=== PATIENT | male | born 1985 | race Caucasian/White ===

== ENCOUNTER 2016-12-07 20:40 | Inpatient (IN) ==
[2016-12-07 21:09] LABS: URINE SOURCE CLEAN CATCH
[2016-12-07 21:14] LABS: BILIRUBIN URINE NEGATIVE (NEGATIVE); BLOOD URINE NEGATIVE (NEGATIVE); COLOR YELLOW; GLUCOSE URINE NEGATIVE (NEGATIVE); LEUKOCYTES URINE NEGATIVE (NEGATIVE); NITRITE URINE NEGATIVE (NEGATIVE); PH URINE 5.5; PROTEIN URINE 50 mg/dL (NEGATIVE); SP GRAVITY URINE 1.022; TURBIDITY URINE CLEAR (CLEAR); UROBILINOGEN URINE 2 mg/dL (NORMAL)
[2016-12-07 21:15] LABS: URINE MICRO REVIEW NEEDED? YES
[2016-12-07 21:15] LABS: BASO% 0.3 % (0.0-0.8); EOS# 0.01 X1000 (0.0-0.7); EOS% 0.1 % (0.0-10.0); HEMATOCRIT 34.9 % (42.0-52.0); HEMOGLOBIN 11.5 g/dL (14.0-18.0); IMM GRAN% 0.7 % (0.0-0.5); LYMPH# 0.98 X1000 (1.2-3.4); LYMPH% 6.7 % (20.5-51.1); MANUAL DIFF NEEDED? NO; MCH 24.7 PG (27-31); MCV 74.9 FL (81-99); MONO# 0.57 X1000 (0.11-0.59); MONO% 3.9 % (1.7-9.3); MPV 10.4 FL (7.4-10.4); NEUT% 88.3 % (42.2-75.2); PLT 452 X1000 (130-400); RBC 4.66 XMIL (4.7-6.1)
[2016-12-07 21:17] LABS: UR EPITHELIAL CELLS <10 /HPF (<10); URINE BACTERIA NEGATIVE /HPF; URINE RBC <10 /HPF (<10); URINE WBC <10 /HPF (<10)
[2016-12-07 21:24] LABS: URINE CASTS GRANULAR PRESENT; URINE CRYSTALS NONE SEEN
[2016-12-07 22:00] LABS: ALBUMIN 3.6 g/dL (3.5-5.0); CALCIUM 8.8 mg/dL (8.8-10.2); MAGNESIUM 2.4 mg/dL (1.5-2.7); POTASSIUM 5.2 mmol/L (3.5-5.1); TOTAL BILIRUBIN 1.37 mg/dL (0.20-1.00); TOTAL PROTEIN 7.3 g/dL (6.3-8.3)
[2016-12-07 22:24] LABS: UR AMPHETAMINES QUAL NONE DETECTED (NONE DETECT); UR BARBITUATES QUAL NONE DETECTED (NONE DETECT); UR BENZODIAZEPIN QUAL NONE DETECTED (NONE DETECT); UR CANNABINOIDS QUAL NONE DETECTED (NONE DETECT); UR COCAINE QUAL NONE DETECTED (NONE DETECT); UR METHADONE QUAL NONE DETECTED (NONE DETECT); UR OPIATES QUAL NONE DETECTED (NONE DETECT); UR OXYCODONE QUAL NONE DETECTED (NONE DETECT); UR PCP QUAL NONE DETECTED (NONE DETECT)
[2016-12-07] MEDS ORDERED: ASPIRIN PO STA (22:37)
[2016-12-07] MEDS ORDERED: LOPRESSOR IV ONE (22:38)
[2016-12-07 22:51] LABS: INR 1.26; PROTIME 13.4 Seconds (9.2-11.7); PTT 29.7 Seconds (22.0-36.0)
[2016-12-08] MEDS ORDERED: LEVAQUIN 500 MG/D5W 500 MG/100 ML IVPB IV ONE (02:05)
[2016-12-08] MEDS ORDERED: NS 1,000 ML IV SCH ×2 (02:55→07:09)
[2016-12-08] MEDS ORDERED: ZOFRAN ONE (03:01)
[2016-12-08] MEDS ORDERED: ZOFRAN IV ONE (03:14)
[2016-12-08] MEDS ORDERED: SODIUM CHLORIDE 0.9% INJ PRN (04:10)
[2016-12-08] MEDS ORDERED: PHENERGAN IV PRN (04:10)
[2016-12-08] MEDS ORDERED: COMPAZINE IV PRN (04:13)
--- NOTE | 2016-12-08 04:17 | HISTORY AND PHYSICAL ---
CHIEF COMPLAINT: Shortness of breath, cough, and chest pain. HISTORY OF PRESENTING ILLNESS: This is a 31-year-old male without any significant past medical history who presented to the emergency department with a 1-week history of having chest discomfort, shortness of breath, and a cough. He states that he initially had some fevers and chills, and then his symptoms became more of a cough and shortness of breath. He apparently went to the urgent care and received antibiotics. However, he did not improve and subsequently he had come to the emergency department. He was evaluated in the ER. He had imaging done which did show that he had a pneumonia. Due to his presenting symptoms, it was thought that he would need hospitalization for further management. At the time of my examination, he had denied any headache, hemoptysis, melena, or any weight changes but complained of nausea, chest discomfort, shortness of breath, and having fever. PAST MEDICAL HISTORY: None. PAST SURGICAL HISTORY: None. ALLERGIES: Penicillin, sulfa, and Bactrim. CURRENT MEDICATIONS: As listed in the MAR. SOCIAL HISTORY: He denies any history of smoking. Admits to social alcohol use. Denies any illicit drug use. FAMILY HISTORY: Positive for coronary disease in father. REVIEW OF SYSTEMS: Twelve point systems as listed in the HPI. Other systems negative. PHYSICAL EXAMINATION: GENERAL: Cooperative, friendly male. He is resting comfortably now. VITAL SIGNS: Temperature 98.5 degrees, pulse 148, respirations 14, blood pressure 133/44. HEENT: Atraumatic, normocephalic. Extraocular movements intact. PERRLA. NECK: No masses. CHEST: Bibasilar rales. CARDIOVASCULAR: Tachycardic. ABDOMEN: Soft. Positive bowel sounds. EXTREMITIES: No edema. NEUROLOGIC: He is awake, alert, oriented x3. : No bladder distention. SKIN: Warm. LABORATORIES AND STUDIES: WBCs 14.64, hemoglobin 11.5, hematocrit 34.9, platelets 452,000. Sodium 134, potassium 5.2, chloride 96, CO2 is 21, BUN is 28, creatinine is 1.6 , glucose is 134. Troponin 0.641. ASSESSMENT: A 31-year-old male who had presented to the emergency department with a 1-week history of having cough, shortness of breath, and chest pain. He was found to have, on imaging, pneumonia. He was also noted to have, on laboratories, elevated troponins. The patient will need hospitalization for further management. 1. Suspected pneumonia. 2. Elevated troponins associated with chest pain. 3. Acute kidney injury. PLAN: 1. We will admit patient to [facility]. 2. We will check blood cultures. Start patient on IV antibiotics. 3. We will trend troponins, check echocardiogram, and consult cardiology. 4. We will continue with IV fluid hydration and monitor renal function. 5. We will put patient on DVT prophylaxis with SCDs and heparin. 6. We will continue to follow and reassess. cc: Kalen Marie MD MTDD
[2016-12-08] MEDS ORDERED: TEFLARO 600 MG in NS 250 ML IV SCH (09:45)
[2016-12-08 11:50] VITALS: BP 106/31
--- NOTE | 2016-12-08 12:13 | CONSULTATION ---
DATE OF CONSULTATION: 12/08/2016 CHIEF COMPLAINT: Shortness of breath, tachycardia. HISTORY OF PRESENT ILLNESS: Mr. Maddox is a 31-year-old male, a patient of Dr. Lissett Saul, previously healthy, who presented to the emergency room department at about 10:00 p.m. last night with complaints of approximately 9 to 10 days of relatively sudden onset of malaise, shortness of breath, palpitations and diarrhea. This went on for a couple of days. He went to the urgent care where they gave him some symptomatic medicines, no antibiotics. He continued to feel poorly with alternation of shortness of breath and tachycardia. He went to Dr. Saul's office on 12/06/2016. They dejuan some blood work, and those results were pending. Last night he felt very poorly and decided to come to the emergency room. In the ER, a chest x-ray showed bilateral infiltrates suspicious for pneumonia. They did a CT scan of the chest with contrast that showed no pulmonary embolus and bilateral pulmonary infiltrates. The patient has been admitted to the Step Down Unit for evaluation. They have checked cardiac enzymes, and 3 of them are elevated at 0.641, 0.666 and 0.658 with normal CPKs. They are calling Cardiology in consultation because of the abnormal cardiac enzymes. An EKG was done at the time of presentation at 8:55 p.m. that shows sinus tachycardia with diffuse ST-T abnormality in multiple leads and LVH. PAST MEDICAL HISTORY: Really negative. He really has no previous illnesses to report. He has been pretty healthy. PAST SURGICAL HISTORY: Also negative. He has no previous operations. ALLERGIES: Reportedly to penicillin, sulfamethoxazole and trimethoprim. REVIEW OF SYSTEMS: He was born as a normal child. He has no previous major illnesses or surgeries. He is very active. SOCIAL HISTORY: He is single. He works at the [place] in [place]. He does not use any drugs or alcohol or smoking cigarettes. FAMILY HISTORY: Coronary artery disease in father, otherwise nothing contributory. PHYSICAL EXAMINATION: Pulse rate is 131, temperature 97.8, blood pressure 125/ 52, respirations 25. He is tachypneic. He has conversational dyspnea. He appears to be pale. He appears to be acutely ill. HEENT is unremarkable. Chest: Slightly diminished breath sounds. No definite rales are noted. Heart sounds are tachycardic, regular, loud murmur or diastolic regurgitation noted at the base of the heart. Abdomen is slightly tender in the right upper quadrant. Extremities showed symmetrical pulses; however, they appeared to be decreased in amplitude,somewhat feeble (radial,DP,PT). Neurologic: He moves all 4 extremities. He has no obvious deficits. DIAGNOSTIC DATA: Blood work shows sodium 134, potassium 5.2, BUN is 28, creatinine 1.6. White count is 14,000, hemoglobin 11.5. ADDENDUM: C-reactive protein was checked and was 102.33 mg/L (normal less than 5). Sedimentation rate is 40 mm/hr. Both inflammatory markers. His 2D echocardiogram was done today, and I have reviewed it. It shows significant enlargement of the left ventricular chamber with significant impairment of systolic function. Ejection fraction is 30% with abnormal aortic valve, with prolapsing tissue during diastole with wide open aortic regurgitation and limited opening of the mitral valve, suggesting severe degree of aortic regurgitation. IMPRESSION: 1. 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 2. Respiratory failure secondary to number 1. 3. Renal dysfunction, probably secondary to low cardiac output state, aggravated potentially by intravenous dye used for contrast CT. 4. Elevation of troponin level with abnormal EKG, global subendocardial ischemia from the acute systolic volume overload. RECOMMENDATIONS: The patient's state represents a high risk for mortality. He is in a low cardiac output state clinically with impaired LV function, diminished peripheral pulses. The patient is going to be transferred to [facility] for acute surgical evaluation, possibly acute replacement of the aortic valve. I discussed the case with Dr. Latrell Crow. I explained this to the patient and the family. They all understand and agree. cc: Dr. Latrell Crow, [facility] Cardiology Service Billy Coker MD [facility]
--- NOTE | 2016-12-08 13:14 | Diag Imaging Result Document ---
PROCEDURE NAME: CHEST-1 VIEW - 12/07/2016 PORTABLE CHEST: No comparison exam. FINDINGS: Heart size appears mildly enlarged. There are bilateral perihilar infiltrates. There are small left and possible small right pleural effusions. There is no pneumothorax seen. IMPRESSION: Findings which are suggestive of pulmonary edema/congestive heart failure.
--- NOTE | 2016-12-08 13:15 | Diag Imaging Result Document ---
PROCEDURE NAME: ANGIOGRAM/PULMONARY ARTERIES - 12/08/2016 CT ANGIOGRAM PULMONARY ARTERIES WITH CONTRAST: TECHNIQUE: Exam performed with intravenous contrast. A dose reduction protocol was used. Axial and coronal images are obtained. No comparison exam. FINDINGS: There are no filling defects identified in the pulmonary arteries. There is mild to moderate cardiomegaly. There are bilateral infiltrates which are primarily perihilar in distribution. On the left, the upper lobe infiltrate extends to the apex. There are small bilateral pleural effusions. There is no pneumothorax seen. IMPRESSION: 1. No evidence of pulmonary embolism. 2. Evidence of pulmonary edema/congestive heart failure. In the presence of the pulmonary edema, it is difficult to determine whether or not there is superimposed pneumonia. Preliminary results were provided by a [facility] physician at 1:57 a.m. on 12/08/2016.
--- NOTE | 2016-12-08 16:17 | ECHO REPORT ---
ORDER DATE: 12/08/2016 INTERPRETING PHYSICIAN: Dr. Coker REQUESTING PHYSICIAN: CLINICAL INDICATIONS: This is a 31-year-old male with shortness of breath, tachycardia. M-MODE MEASUREMENTS: Right ventricle: 3.5 cm. Left ventricle end diastole: 7.3 cm. Left ventricle end systole: 6.4 cm. Posterior wall: 1.7 cm. Interventricular septum: 1.7 cm. Left atrium: 4.5 cm. Aortic root: 3.7 cm. SUMMARY OF 2-DIMENSIONAL IMAGIN. Left ventricular chamber is markedly dilated. Global ejection fraction is decreased, estimated at 30% to 35%. 2. The aortic valve is markedly abnormal. I cannot define whether this is a bicuspid or tricuspid valve because the leaflets are completely disrupted. Color flow mapping shows a wide open, severe degree of aortic regurgitation. 3. The mitral valve is not opening appropriately and is suspicious for premature closure. 4. The pulse wave Doppler of mitral inflow shows fusion of the E and the A wave. 5. The excursion of the mitral valve is impeded by the wide open jet of aortic regurgitation. 6. A large vegetation is attached to the posterior aspect of the aortic valve. This vegetation or debris measures anywhere from 2.6 to 3 cm, and it prolapses in diastole. This, as I said, is attached to whatever it is, the posterior aspect of this aortic valve. 7. Pulmonic valve appears to be unremarkable. Color flow mapping indicates mild to moderate degree of regurgitation. 8. Tricuspid valve shows moderate degree of regurgitation. 9. The inferior vena cava is dilated. 10.Pulmonary systolic pressure is estimated at 67 mmHg. 11.There is no definite pericardial effusion. 12.The atria are not dilated. CONCLUSIONS: 1. Markedly dilated left ventricle with significant global impairment. Ejection fraction is 30% to 35%. 2. Severe degree of aortic regurgitation with disruption of the aortic valve, vegetation-like structure attached to the posterior leaflet measuring 2.5 x 3 cm. 3. There is a mild degree of mitral regurgitation, and the opening of mitral valve appears to be restricted. 4. There is moderate degree of pulmonary hypertension, estimated at 67 mmHg. Clinical correlation is recommended. This is consistent with a case of acute systolic dysfunction secondary to a wide open severe acute aortic regurgitation secondary to endocarditis. Clinical correlation is strongly recommended. I believe the patient is going to be admitted to the Cardiovascular Intensive Care Unit at [facility]. cc: MD Kalen Whitt MD Vernon Ross Hunter
[2016-12-09] MEDS ORDERED: LEVAQUIN 750 MG/D5W 750 MG/150 ML IVPB IV SCH (01:00)
--- NOTE | 2016-12-09 01:10 | DISCHARGE SUMMARY ---
ADMISSION DATE: 12/08/2016 DISCHARGE DATE: 12/08/2016 HOSPITAL COURSE: This is a 31-year-old male who presented to the emergency department complaining of sudden onset of generalized malaise, shortness of breath, palpitations, and diarrhea. He went to see his doctor, and they do not have any results from those studies, but considering that this patient continued to deteriorate, he decided to come to the emergency department. Initial workup in the ER showed pneumonia and for apparently a suspicion for a pulmonary embolus. They did a CT angiogram of the chest, which is not reported at the time of dictation. The patient also was ordered an echocardiogram, which basically was seen by Dr. Coker from Cardiology, which showed significant enlargement of the left ventricle chamber, with a significant impairment of the systolic function, with ejection fraction of 20%. Basically, showed [id number] aortic insufficiency. Also, Dr. Coker, considering these severe findings in the echocardiogram, he decided to transfer this patient to [facility] for acute surgical evaluation and possible acute replacement of the aortic valve. cc: Clifton Ayala MD
--- NOTE | 2016-12-09 07:34 | EKG Report ---
Test Performed on : 12/07/2016 8:55:00 PM Test Reason : HIGH HR Blood Pressure : / mmHG Vent. Rate : 143 BPM Atrial Rate : 143 BPM P-R Int : 112 ms QRS Dur : 098 ms QT Int : 322 ms P-R-T Axes : -17 044 198 degrees QTc Int : 496 ms Sinus tachycardia. Septal infarct , age undetermined Marked ST abnormality, possible inferior subendocardial injury Marked ST abnormality, possible anterolateral subendocardial injury Abnormal ECG No previous ECGs available Unconfirmed Result
--- NOTE | 2016-12-09 07:35 | EKG Report ---
Test Performed on : 12/07/2016 10:41:05 PM Test Reason : repeat-2hr Blood Pressure : / mmHG Vent. Rate : 145 BPM Atrial Rate : 145 BPM P-R Int : 118 ms QRS Dur : 086 ms QT Int : 320 ms P-R-T Axes : 000 -68 249 degrees QTc Int : 497 ms Sinus tachycardia. Left axis deviation Possible Anterior infarct (cited on or before 07-DEC-2016) Marked ST abnormality, possible lateral subendocardial injury Abnormal ECG When compared with ECG of 07-DEC-2016 20:55, (Unconfirmed) QRS axis shifted left Serial changes of evolving Anterior infarct present Unconfirmed Result
--- NOTE | 2016-12-25 10:28 | ED EKG INTERP ---
This chart was entered by Cecily Steele Scribe, acting as scribe for Clement Sanabria MD. EKG Interpretation - EKG Time of EKG reading by physician:: 20:55 EKG Read and Signed by:: Clement Sanabria EKG Interpretation (*Must complete 3 of following elements*): Abnormal Rate: 143 (septal infarct, age undeterminded; marked ST abnormality, possible inferior subendocardial injury; Marked ST abnormality, possible anterolateral subendocardial injury) Rhythm: sinus tachycardia - EKG # 2 Time of EKG reading by physician:: 22:41 EKG Read and Signed by:: Clement Sanabria EKG Interpretation (*Must complete 3 of following elements*): Abnormal Rate: 145 (left axis deviation; possible anterior infarct, age undetermined; marked st abnormality, possible lateral subendocardial injury) Rhythm: sinus tachycardia This chart was documented by the indicated scribe, (Cecily Steele Scribe) and accurately reflects the services I performed and decisions made by Daniele sexton Christophe I, MD, as attested by the provider's signature.
--- NOTE | 2016-12-25 10:28 | PROVIDER DOCUMENTATION ---
This chart was entered by Cecily Steele Scribe, acting as scribe for Clement Sanabria MD. HPI-Cardiac General - General Chief Complaint: General Adult Stated Complaint: "ABNORMAL, NAUSEA, SOB" Time Seen by Provider: 12/07/16 22:36 Source: patient Allergies/Adverse Reactions: Patient Allergies Allergy/AdvReac Type Severity Reaction Status Date / Time Penicillins Allergy Unknown Verified 12/07/16 23:01 sulfamethoxazole Allergy RASH Verified 12/07/16 23:01 [From Bactrim] trimethoprim [From Bactrim] Allergy RASH Verified 12/07/16 23:01 Home Medications: Home Medication List Medication Instructions Recorded Confirmed Last Taken Type Naproxen 500 mg PO BID PRN 04/11/14 12/07/16 12/07/16 History - History of Present Illness-Cardiac Nature of Presenting Problem: Pt is a 31 yom who came to the ED with a cc of SOB and weakness. Pt reports he has been sick for one week. pt reports he went to urgent care and they diagnosed him with gastroenteritis and abnormal labs. Pt reports his heart has been racing and being sweat. pt reports he has been weak and not having an apatite for one week. Location: reports: substernal Quality of Pain: reports: none Severity in ED: mild Onset/Duration: just prior to arrival Timing: still present Modifying Factors: improves with: palpation, vomiting Palpitation Quality: fast/pounding heart beat Recent use of:: reports: no stimulants Nitro Today/Relief: reports: no nitro taken today Aspirin Treatment Today: reports: provided at home Prior Chest Pain/Cardiac Workup: reports: no prior chest pain Associated Symptoms: reports: nausea, shortness of breath, vomiting, weakness Similar Symptoms Previously?: Yes Recently Seen Here or By Another Healthcare Provider: Yes Review of Systems - Adult - REVIEW OF SYSTEMS - ADULT Constitutional: denies: chills, fever Eyes: reports: no symptoms reported Ears, Nose, Mouth & Throat: reports: no symptoms reported Cardiovascular: reports: no symptoms reported Respiratory: reports: shortness of breath. denies: cough, hemoptysis Gastrointestinal: reports: diarrhea, nausea, vomiting. denies: difficulty swallowing, frequent heartburn Genitourinary: reports: no symptoms reported Musculoskeletal: reports: muscle weakness. denies: frequent leg cramps, joint swelling Integumentary: reports: no symptoms reported Neurological: reports: no symptoms reported Psychiatric: reports: no symptoms reported Endocrine: reports: no symptoms reported Hematologic/Lymphatic: reports: no symptoms reported Allergic/Immunologic: reports: no symptoms reported All Other Systems: Reviewed and Negative Past History - Adult - PAST MEDICAL HISTORY-ADULT Review of Records: reports: Old Records Reviewed, Nursing Assessment Review, Medications Reviewed, Social history reviewed & non-contributory. Major Childhood Illnesses: reports: denies history Cardiovascular: reports: denies history Respiratory: reports: denies history Gastrointestinal: reports: denies history Obstetrical/Gynecological: reports: denies history Genitourinary: reports: denies history Musculoskeletal: reports: denies history Neurological: reports: denies history Endocrine/Immune: reports: denies history Other Conditions: reports: denies history - PRIOR SURGERIES/PROCEDURES Surgical/Procedure History: reports: reviewed, not pertinent - PRIOR HOSPITALIZATIONS Prior Hospitalizations: reports: none - IMMUNIZATION STATUS Childhood Immunizations: See Nurse Assessment Flu Vaccine: See Nurse Assessment - FAMILY HISTORY Family History: reviewed, not pertinent Physical Exam-General - PHYSICAL EXAM-ADULT Initial Vital Signs Reviewed: Yes - CONSTITUTIONAL General Appearance: appears well, alert, no apparent distress - EYES Eyes: PERRL/EOMI, pink conjunctivae - HEAD, EARS, NOSE, MOUTH & THROAT HENMT: normocephalic/atraumatic, moist mucous membranes - NECK Neck: non-tender, full range of motion - RESPIRATORY Respiratory: chest non-tender, lungs clear, normal breath sounds - CARDIOVASCULAR Cardiovascular: tachycardia - GASTROINTESTINAL (ABDOMEN) Abdominal Exam: normal bowel sounds, non tender, soft - LYMPHATIC Lymphatic: no adenopathy - MUSCULOSKELETAL Back Exam: normal inspection, no CVA tenderness Extremity: normal range of motion, non-tender - SKIN Integumentary: normal color, normal turgor - NEUROLOGIC Neurologic: grossly normal - PSYCHIATRIC Psych/Mental Status: normal mood/affect, normal thought content, normal thought process, oriented x 3 Progress - PLAN OF CARE/RESULTS Progress/Plan/Lab Results: Orders Category Date Time Status Admit - [facility] Routine [id number] 12/08/16 02:55 Ordered Activity - Up with Assistance ORDERED Care 12/08/16 02:55 Active Cardiac Monitoring DIRECTED Care 12/07/16 22:37 Completed Elevate Head of Bed DIRECTED Care 12/08/16 02:55 Active Encourage Fluids DIRECTED Care 12/08/16 02:55 Active Intake and Output-Strict Q 8-HR ASSESS Care 12/08/16 02:55 Active Nursing- Assist w/ IS as order ORDERED Care 12/08/16 02:55 Active Nursing- MD Consult Request ROUTINE Care 12/08/16 02:55 Active Oxygen Therapy- ED Nursing DIRECTED Care 12/07/16 22:37 Completed Saline Loc NOW Care 12/07/16 22:37 Completed Turn, Cough and Deep Breathe Q2HR Care 12/08/16 02:55 Active Vital Signs Order Q 8-HR ASSESS Care 12/08/16 02:55 Hold Physician/Provider Consults Routine Cons 12/08/16 02:55 Ordered ANGIOGRAM/PULMONARY ARTERIES [CT] Stat Exams 12/08/16 00:47 Completed CHEST-1 VIEW [RAD] Stat Exams 12/07/16 22:38 Completed BLOOD CULTURE [BLDCUL] Stat Lab 12/08/16 03:05 Completed CBC WITH ELECTRONIC DIFF [HEME] Stat Lab 12/07/16 20:58 Completed CK PROFILE [SP CHEM] Stat Lab 12/07/16 20:58 Completed CK PROFILE [SP CHEM] Stat Lab 12/07/16 23:54 Completed CMP [COMPREHENSIVE METABOLIC PANEL] [CHEM] Stat Lab 12/07/16 20:58 Completed MAGNESIUM [CHEM] Stat Lab 12/07/16 20:58 Completed PROTIME WITH INR [COAG] Stat Lab 12/07/16 20:58 Completed PTT [COAG] Stat Lab 12/07/16 20:58 Completed TROPONIN T Q8HR Lab 12/08/16 05:49 Completed TROPONIN T Stat Lab 12/07/16 20:58 Completed TROPONIN T Stat Lab 12/07/16 23:54 Completed UDS [URINE DRUG SCREEN] Stat Lab 12/07/16 21:02 Completed URINALYSIS-1 [URINALYSIS] Stat Lab 12/07/16 21:02 Completed URINE MANUAL MICROSCOPIC [URINALYSIS] Stat Lab 12/07/16 21:02 Completed 0.9% Sodium Chloride Inj [Ns] 1,000 ml Med 12/08/16 02:55 Discontinued IV 125 mls/hr Aspirin Med 12/07/16 22:37 Discontinued 325 mg PO STAT STA Levofloxacin 500 mg/D5w [Levaquin 500 mg/D5w] Med 12/08/16 02:05 Discontinued 500 mg in 100 ml IV NOW Levofloxacin 750 mg/D5w [Levaquin 750 mg/D5w] Med 12/09/16 01:00 Discontinued 750 mg in 150 ml IV Q24H Metoprolol [Lopressor] Med 12/07/16 22:38 Discontinued 5 mg IV NOW ONE Incentive Spirometer Routine Oth 12/08/16 02:55 Completed Oxygen Device Routine Oth 12/08/16 02:55 Completed Pulse Oximetry Routine Oth 12/08/16 02:55 Completed Telemetry [OM.EQ] Routine Oth 12/08/16 02:55 Active EKG [EKG] Stat Ther 12/07/16 20:49 Draft EKG [EKG] Stat Ther 12/07/16 22:34 Draft Echo Spec/Color Dop W/O Contra Routine Ther 12/08/16 02:55 Completed Transfer/Admit Order [TRANSFER] Routine Transfer 12/08/16 02:08 Completed Result Diagrams: 12/07/16 20:58 12/07/16 20:58 Departure - Departure Date of Disposition Decision: 12/08/16 Time of Disposition Decision: 02:00 DIAGNOSIS: Dyspnea Disposition: ADMITTED INPATIENT 09 Certified Medical Emergency: Emergent Condition: Stable - Critical Care Note This patient required my direct & personal management of CC.: Yes This chart was documented by the indicated scribe, (Cecily Steele Scribe) and accurately reflects the services I performed and decisions made by me, Clement Sanabria MD, as attested by the provider's signature.
== END 2016-12-08 13:20 | disposition short-term general hospital (02) ==
LOC: ED 20:40 → 4N 12-08 02:56 → SUATTDRO 12-08 02:56 → 3S 12-08 03:30
PROVIDERS: ATTEND Internal Medicine